=== PATIENT | male | born 1965 | race Caucasian/White ===

== ENCOUNTER 2019-05-25 16:18 | Emergency (ER) | payer BC, OTHER ==
--- NOTE | 2019-05-25 17:07 | UC ---
Throat Pain/Nasal Eleazar HPI - HPI Summary HPI Summary: 54yo male presenting with pain, itching, and decreased hearing in right ear and scratchy throat and nasal congestion x1 week. Patient believes his allergies are causing his symptoms. States today he woke up and noticed he is losing his voice. Notes minimal cough. Denies fever and chills. Denies sob and wheezing. Denies chest pain but notes a "pain in his right lower rib when he coughs." Denies radiating pain. Denies n/v. Denies ill contacts. Denies concern for flu or covid19. Taking dayquil with minimal relief. - History of Current Complaint Stated Complaint: SINUS ISSUES,EAR PAIN Hx Obtained From: Patient Pain Intensity: 2 - Allergies/Home Medications Allergies/Adverse Reactions: Allergies Allergy/AdvReac Type Severity Reaction Status Date / Time No Known Allergies Allergy Verified 05/25/19 16:57 Home Medications: Home Medications Amoxicillin/Clavulanate TAB* [Augmentin TAB 875*] 875 mg PO BID #14 tab [Rx] D-Methorphan/PE/Acetaminophen [Vicks Dayquil Cold & Flu 10-5-325 mg/15Ml] 1 liq PO Q6H 05/25/19 [History Confirmed 05/25/19] PMH/Surg Hx/FS Hx/Imm Hx Previously Healthy: Yes - Surgical History Surgical History: Yes Surgery Procedure, Year, and Place: wrist as a kid - Family History Known Family History: Positive: Non-Contributory - Social History Alcohol Use: None Substance Use Type: None Smoking Status (MU): Never Smoked Tobacco Review of Systems All Other Systems Reviewed And Are Negative: Yes Constitutional: Positive: Negative ENT: Positive: Sore Throat, Ear Ache - right, Sinus Congestion, Other - loss of voice Respiratory: Positive: Cough - minimal. Negative: Shortness Of Breath Cardiovascular: Positive: Negative Gastrointestinal: Positive: Negative Musculoskeletal: Positive: Negative. Negative: Myalgia Neurological/Mental Status: Positive: Negative Physical Exam Triage Information Reviewed: Yes Appearance: Well-Appearing, No Pain Distress, Well-Nourished Vital Signs: Vital Signs (72 hours) 05/25/19 17:09 Temperature 98.2 F Pulse Rate 98 Respiratory 12 Rate Blood Pressure 152/98 (mmHg) O2 Sat by Pulse 96 Oximetry Lab Results 03/23/20 Range/Units 17:24 Group A Strep Rapid Negative (Negative) Vital Signs Reviewed: Yes Eyes: Positive: Conjunctiva Clear ENT: Positive: Hearing grossly normal, Pharyngeal erythema, Nasal congestion, TM bulging - right, TM red - right, Hoarse voice, Uvula midline. Negative: Tonsillar swelling, Tonsillar exudate, Trismus, Muffled voice, Sinus tenderness Neck exam: Normal Neck: Positive: Supple, Nontender, No Lymphadenopathy Respiratory Exam: Normal Respiratory: Positive: Lungs clear, Normal breath sounds, No respiratory distress, No accessory muscle use Cardiovascular Exam: Normal Cardiovascular: Positive: RRR, No Murmur Neurological: Positive: Alert Psychological: Positive: Age Appropriate Behavior Skin Exam: Normal Throat Pain/Nasal Course/Dx - Course Course Of Treatment: Negative rapid strep. I treated the patient with Augmentin for otitis media of right ear. Instructed to take his Claritin at home for his allergy symptoms. Instructed to also drink tea with honey or use throat lozenges to help alleviate scratchy throat. Instructed to return or contact PCP if symptoms do not improve within 7 days. Patient voiced understanding and agreed with the treatment plan. - Differential Dx/Diagnosis Differential Diagnosis/HQI/PQRI: Pharyngitis, Sinusitis, URI Provider Diagnosis: Laryngitis, Otitis media of right ear, Allergic sinusitis Discharge ED - Sign-Out/Discharge Documenting (check all that apply): Patient Departure All imaging exams completed and their final reports reviewed: No Studies - Discharge Plan Condition: Stable Disposition: HOME Prescriptions: Amoxicillin/Clavulanate TAB* [Augmentin TAB 875*] 875 mg PO BID #14 tab Patient Education Materials: Laryngitis (ED), Ear Infection (ED), Allergies (ED ) Additional Instructions: Take Augmentin as prescribed for your ear infection. You may take your claritin as directed for relief of allergy symptoms. Throat lozenges and tea with honey may help alleviate scratchy throat. Rest your voice and it will return to normal over time. Follow up with your primary care provider within the next two months if possible to have your elevated blood pressure reevaluated. - Billing Disposition and Condition Condition: STABLE Disposition: Home
[2019-05-25 17:11] VITALS: BP 152/98
== END 2019-05-25 17:54 | disposition home or self-care (01) ==
LOC: UCEAST 16:18
DX: J04.0 Acute laryngitis (principal); H66.91 Otitis media, unspecified, right ear; J30.9 Allergic rhinitis, unspecified
CPT/HCPCS: 87651; 99202; G0463

== ENCOUNTER 2021-03-12 04:49 | Observation (INO) ==
[2021-03-12 06:02] LABS: ABS Lymphocytes 1.4 10^3/ul (1.0-4.8); ABS Monocytes 0.1 10^3/ul (0-0.8); ABS Neutrophils 7.9 10^3/ul (1.5-7.7); Eosinophil % 0.2 %; Hematocrit 48 % (42-52); Hemoglobin 15.7 g/dL (14.0-18.0); Lymphocyte % 14.6 %; Mean Corpuscular HGB Conc 33 g/dL (31-36); Mean Corpuscular Hemoglobin 28 pg (27-31); Mean Corpuscular Volume 86 fL (80-94); Mean Platelet Volume 9.1 fL (7.4-10.4); Nucleated Red Blood Cells % 0.1; Platelet Count 225 10^3/uL (150-450); Red Blood Count 5.59 10^6 /uL (4.18-5.48); Red Cell Distribution Width 13 % (10-15); White Blood Count 9.4 10^3/uL (3.5-10.8)
[2021-03-12] MEDS: NS 0.9% 1000 ml BAG 2,000 ML IV ONE ×2 (06:15→07:03)
[2021-03-12 06:19] LABS: ALT 17 U/L (7-52); AST 20 U/L (13-39); Albumin 4.1 g/dL (3.2-5.2); Albumin/Globulin Ratio 1.6 (1-3); Alkaline Phosphatase 77 U/L (35-149); Anion Gap 15 mmol/L (2-11); Blood Urea Nitrogen 15 mg/dL (6-24); CO2 Carbon Dioxide 18 mmol/L (22-32); Calcium 8.5 mg/dL (8.6-10.3); Chloride 105 mmol/L (101-111); Globulin 2.5 g/dL (2-4); Glucose 175 mg/dL (70-100); Potassium 3.5 mmol/L (3.5-5.0); Sodium 138 mmol/L (135-145); Total Protein 6.6 g/dL (6.4-8.9); eGFR CKD-EPI 57.1 (>60)
[2021-03-12] MEDS ORDERED: Dexamethasone IV 4 MG/ML VIAL 1 ml VIAL IV SLOW PU ONE (06:48)
[2021-03-12] MEDS ORDERED: Remdesivir 100 mg Vial 200 MG in NS 0.9% 250 ml 210 ML IV ONE (06:53)
[2021-03-12 07:02] LABS: Troponin I 0.06 ng/mL (<0.03)
[2021-03-12 07:31] LABS: Creatine Kinase 38 U/L (10-223); Magnesium 1.7 mg/dL (1.9-2.7)
[2021-03-12] MEDS ORDERED: Iodixanol (CONTRAST) 320 MG/ML 100 ML SDV IV ONE (07:42)
[2021-03-12] MEDS ORDERED: NS 0.9% 1000 ml BAG 1,000 ML IV ONE ×2 (07:59→09:17)
[2021-03-12] MEDS ORDERED: Magnesium Sulfate 2 gm BAG 2 GM/50 ML BAG IVPB ONE (07:59)
[2021-03-12 08:00] LABS: INR 1.13 (0.86-1.15)
[2021-03-12] MEDS ORDERED: Ondansetron 4 mg VIAL 2 MG/ML 2 ml VIAL IV PRN (10:33)
[2021-03-12] MEDS ORDERED: Albuterol HFA INHALER 8 gm MDI INH PRN (10:39)
[2021-03-12] MEDS ORDERED: Morphine 2 MG/ML SYRINGE IV ONE (11:14)
[2021-03-12] MEDS ORDERED: Al Hydrox/Mg Hydrox/Simet LIQ 30 ML UDC PO PRN (11:14)
[2021-03-12] MEDS ORDERED: Potassium Chlor 20 meq TAB.ER PO ONE (11:17)
[2021-03-12] MEDS: Enoxaparin 40 MG/0.4 ML SYR SUBCUT SCH (11:46)
[2021-03-12 12:07] LABS: Urine Appearance Cloudy; Urine Bilirubin Negative (Negative); Urine Blood Negative (Negative); Urine Color Yellow; Urine Glucose Negative (Negative); Urine Ketones Trace (Negative); Urine Nitrite Negative (Negative); Urine Protein 1+(30 mg/dL) (Negative); Urine Specific Gravity 1.043 (1.002-1.030); Urine Urobilinogen Negative (Negative)
[2021-03-12 12:28] LABS: Troponin I 0.82 ng/mL (<0.03); Urine Benzodiazepine Screen None Detected (None Detect); Urine Cannabinoids Screen None Detected (None Detect); Urine Opiates Screen None Detected (None Detect)
[2021-03-12 12:31] LABS: Urine Bacteria Absent (Absent); Urine Red Blood Cell Trace(0-2/hpf) (Absent); Urine Squamous Epithelial Cell Present (Absent); Urine White Blood Cell 1+(6-10/hpf) (Absent)
[2021-03-12 13:09] LABS: C Reactive Protein 95.71 mg/L (<8.01); Cholesterol 120 mg/dL; HDL Cholesterol 31.2 mg/dL; LDL Cholesterol 78 mg/dL; Triglycerides 53 mg/dL
[2021-03-12 16:59] LABS: Troponin I 0.66 ng/mL (<0.03)
[2021-03-12] MEDS: NS 0.9% 1000 ml BAG 1,000 ML IV SCH (18:16)
[2021-03-13] MEDS: NS 0.9% 1000 ml BAG 1,000 ML IV SCH (05:47)
[2021-03-13 06:55] LABS: ABS Lymphocytes 1.1 10^3/ul (1.0-4.8); ABS Monocytes 0.7 10^3/ul (0-0.8); ABS Neutrophils 11.1 10^3/ul (1.5-7.7); Eosinophil % 0.1 %; Hematocrit 40 % (42-52); Hemoglobin 13.2 g/dL (14.0-18.0); Lymphocyte % 8.6 %; Mean Corpuscular HGB Conc 33 g/dL (31-36); Mean Corpuscular Hemoglobin 28 pg (27-31); Mean Corpuscular Volume 87 fL (80-94); Mean Platelet Volume 8.6 fL (7.4-10.4); Platelet Count 171 10^3/uL (150-450); Red Blood Count 4.67 10^6 /uL (4.18-5.48); Red Cell Distribution Width 13 % (10-15); White Blood Count 12.9 10^3/uL (3.5-10.8)
[2021-03-13 07:00] LABS: INR 1.3 (0.86-1.15)
[2021-03-13 07:26] LABS: Calcium 7.6 mg/dL (8.6-10.3); Magnesium 2.1 mg/dL (1.9-2.7); Potassium 3.7 mmol/L (3.5-5.0); eGFR CKD-EPI 91.1 (>60)
[2021-03-13] MEDS ORDERED: Remdesivir 100 mg Vial 100 MG in NS 0.9% 250 ml 230 ML IV SCH (09:00)
[2021-03-13] MEDS: Enoxaparin 40 MG/0.4 ML SYR SUBCUT SCH (12:54)
[2021-03-13 15:40] VITALS: BP 117/76
== END 2021-03-13 18:30 | disposition home or self-care (01) ==
LOC: EDHOLD 04:49 → ED 04:49 → SUATTDRO 10:33 → MED 17:28
PROVIDERS: ADMIT Internal Medicine; ATTEND Hospitalist